=== PATIENT | male | born 1965 | race Caucasian/White ===

== ENCOUNTER 2016-04-23 16:27 | Emergency (ER) | payer OTHER ==
[~2016-04-23] VITALS: Ht 182.9 cm; Wt 140.3 kg
[~2016-04-23 16:27] MED LIST: ATARAX,VISTARIL25 MG PO; BACTRIM,SEPT1 TABLET PO; CEFDINIR300 MG PO; CEPHALEXIN500 MG PO; HYDROCODON-ACE1 EAC7 PO; IBUPROFEN800 MG PO; KEFLEX500 MG PO; KENALOG,ARISTOC80 G1 TP; LO-DOSE ASPIRIN81 M1 PO; MUPIROCIN15 GM TP; NAPROSYN500 MG PO; NAPROXEN500 MG PO; NORCO 5/3251 TABLET PO; PERCOCET 5/31 TABLET PO; PREDNISONE20 MG PO; ROBITUSSIN AC,T10 ML PO; ZITHROMAX Z-PA250 MG PO; ZOFRAN4 MG PO
[2016-04-23] MEDS ORDERED: ABX (17:02)
[2016-04-23] MEDS ORDERED: NAPROXEN500 MG PO (17:02)
[2016-04-23 17:42] LABS: HEMATOCRIT 39.5 % (38.0-50.0); MCHC 33.4 G/DL (30.0-36.0); MCV 86.8 FL (86-99); PLATELET COUNT 144 K/uL (156-360); RBC DIS.WIDTH-CV 14.2 % (11.8-14.6); RBC DIS.WIDTH-SD 44.3 % (39-53); RED BLOOD COUNT 4.55 M/uL (4.00-5.50); WHITE BLOOD COUNT 6.3 K/uL (4.1-10.2)
[2016-04-23 17:57] LABS: CHLORIDE 109 mEq/L (99-109); SODIUM 144 mEq/L (136-147)
[2016-04-23 17:59] LABS: GLUCOSE 89 mg/dL (70-99)
[2016-04-23 18:01] LABS: ANION GAP 12 MEQ/L (2-14); TOTAL BILIRUBIN 0.2 mg/dL (0.0-1.0)
[2016-04-23 18:03] LABS: ALKALINE PHOSPHATASE 83 IU/L (3-129); GFR ESTIMATE (CALCULATED) > 59 mL/min/
[2016-04-23 18:04] LABS: UREA NITROGEN (BUN) 25 mg/dL (9-23)
[2016-04-23 18:06] LABS: LIPASE 26 U/L (1.0-51.0)
[2016-04-23] MEDS ORDERED: MOBIC7.5 MG PO (18:50)
[2016-04-23] MEDS ORDERED: FLEXERIL10 MG PO (18:50)
[2016-04-23 19:33] VITALS: BP 142/93
== END 2016-04-23 19:34 | disposition home or self-care (01) ==
LOC: EME 16:27
PROVIDERS: Nurse Practitioner Family
DX: M54.42 Lumbago with sciatica, left side (principal); J32.9 Chronic sinusitis, unspecified; V47.0XXA Car driver injured in collision with fixed or stationary object in nontraffic accident, initial encounter; Z85.72 Personal history of non-Hodgkin lymphomas; F17.200 Nicotine dependence, unspecified, uncomplicated
CPT/HCPCS: 71020; 74176; 80053; 83690; 85027; 99281; 99284; J1885

== ENCOUNTER 2017-02-21 21:09 | Emergency (ER) | payer OTHER ==
[~2017-02-21] VITALS: Ht 182.9 cm; Wt 142.1 kg
[~2017-02-21 21:09] MED LIST changes: +ABX; +FLEXERIL10 MG PO; +MOBIC7.5 MG PO
[2017-02-21 21:16] VITALS: BP 152/95
== END 2017-02-21 22:45 | disposition left against medical advice (07) ==
LOC: EME 21:09
DX: J02.9 Acute pharyngitis, unspecified (principal); R05 Cough; M79.604 Pain in right leg; M79.89 Other specified soft tissue disorders; R06.02 Shortness of breath; Z53.21 Procedure and treatment not carried out due to patient leaving prior to being seen by health care provider